=== PATIENT | female | born 1970 | race Caucasian/White ===

== ENCOUNTER → 2017-05-22 | Outpatient (CLI) | payer BC ==
--- NOTE | 2017-05-24 10:00 | Diagnostic Imaging Report ---
EXAMINATION: MRI of the brain without contrast. HISTORY: Multiple sclerosis follow-up COMPARISON: Brain MRI and 11/21/2016 TECHNIQUE: Axial precontrast T1. Postcontrast sagittal high resolution thin cuts T2-FLAIR CUBE with axial and coronal reconstructions, axial DWI, T2, and axial and coronal T1 fat sat. FINDINGS: T2 lesions: Unchanged approximately 35-40 discrete T2 lesions located in the juxta cortical, subcortical, deep centrum semiovale, stone radiata, periventricular, corpus callosum, callososeptal interface, around the margins of the fourth ventricle as well as confluent left periatrial and occipital periventricular lesions. Lesions are 2 to 27 mm diameter. No discrete new T2 lesions. T1 lesions: Unchanged right superior/middle frontal gyri T1 lesion. Corpus callosum volume: Mild generalized volume loss Brain volume: Normal for age. Other: No mass, hydrocephalus, hemorrhage, acute or chronic infarcts IMPRESSION: 1. Unchanged mostly supratentorial white matter demyelinating T2 lesions. No new MS lesions. 2. Stable mild callosal volume loss. Signed by: Dr. Kavita Marcus M.D. on 05/24/2017 9:56 AM
== END ==
LOC: MRI 08:52
PROVIDERS: ATTEND Radiology Neuroradiology
DX: G35 Multiple sclerosis (principal)
CPT/HCPCS: 70551

== ENCOUNTER → 2017-12-04 | Outpatient (CLI) | payer BC ==
--- NOTE | 2017-12-06 07:05 | Diagnostic Imaging Report ---
EXAMINATION: MRI of the brain without contrast. HISTORY: Multiple sclerosis follow-up COMPARISON: Brain MRI on 05/22/2017 TECHNIQUE: Axial precontrast T1. Postcontrast sagittal high resolution thin cuts T2-FLAIR CUBE with axial and coronal reconstructions, axial DWI, T2, and axial and coronal T1 fat sat. FINDINGS: T2 lesions: Unchanged approximately 35-40 discrete T2 lesions located in the juxta cortical, subcortical, deep centrum semiovale, stone radiata, periventricular, corpus callosum, callososeptal interface, around the margins of the fourth ventricle as well as confluent bilateral periatrial and occipital periventricular lesions. Lesions are 2 to 27 mm diameter. No discrete new T2 lesions. T1 lesions: Unchanged right superior/middle frontal gyri T1 lesion with associated focal volume loss. Corpus callosum volume: Mild generalized volume loss Brain volume: Mild volume loss Other: No mass, hydrocephalus, hemorrhage, acute or chronic infarcts IMPRESSION: 1. Unchanged mostly supratentorial white matter demyelinating T2 lesions. No new MS lesions. 2. Stable mild callosal and brain volume loss. Signed by: Dr. Kavita Marcus M.D. on 12/06/2017 7:02 AM
== END ==
LOC: MRI 07:57
PROVIDERS: ATTEND Radiology Neuroradiology
DX: G35 Multiple sclerosis (principal)
CPT/HCPCS: 70551

== ENCOUNTER → 2018-06-08 | Outpatient (CLI) | payer BC ==
--- NOTE | 2018-06-08 09:17 | Diagnostic Imaging Report ---
EXAMINATION: MRI of the brain without contrast . HISTORY: Relapsing remitting multiple sclerosis follow-up, high risk medication (Tysabri). COMPARISON: Brain MRI and 12/04/2017 TECHNIQUE: Precontrast axial DWI, T1, T2, T2 FLAIR, Volumetric T2 FLAIR FS reconstructed in the axial, sagittal and coronal planes. FINDINGS: T2 lesions: Unchanged approximately 35-40 discrete T2 lesions located in the juxta cortical, subcortical, deep centrum semiovale, stone radiata, periventricular, corpus callosum, callososeptal interface, around the margins of the fourth ventricle as well as confluent bilateral periatrial and occipital periventricular lesions. Unchanged lesions near the genu of the internal capsules and left thalamo-capsular region. Lesions are 2 to 27 mm diameter. No discrete new T2 lesions. T1 lesions: Unchanged prominent right middle frontal gyrus juxtacortical T1 lesion. Overall unchanged approximately 3 to 5 slightly T1 hypointense periventricular lesions. Corpus callosum volume: Multiple renal Brain volume: Mild volume loss, with particular focal atrophy along the right middle frontal gyrus, related to above mentioned T1 lesion. Other: No mass, hydrocephalus, hemorrhage, acute or chronic infarcts IMPRESSION: 1. Unchanged mostly supratentorial white matter demyelinating. 2 lesions. No new T1 or T2 MS lesions. 2. Persistent mild brain and callosal volume loss. Signed by: Dr. Kavita Marcus M.D. on 06/08/2018 9:13 AM
== END ==
LOC: MRI 07:57
PROVIDERS: ATTEND Radiology Neuroradiology
DX: G35 Multiple sclerosis (principal)
CPT/HCPCS: 70551

== ENCOUNTER → 2018-12-05 | Outpatient (CLI) | payer BC ==
--- NOTE | 2018-12-05 10:16 | Diagnostic Imaging Report ---
Examination: MRI BRAIN WITHOUT CONTRAST HISTORY:Multiple sclerosis. COMPARISON:Brain MRI performed June 08, 2018, December 04, 2017 and May 22, 20192017. TECHNIQUE: Sagittal and coronal FLAIR; axial T1, T2, and DWI. Contrast: None. FINDINGS: T2 lesions: Number: Unchanged between 35 and 40 discrete T2 lesions. No new lesion. Location: Genu of the left internal capsule, left thalamocapsular region, periventricular, deep, callosal septal interface, corpus callosum, juxtacortical white matter. Left superior cerebellum. T1 "black holes": Unchanged right superior and middle frontal gyri and juxtacortical lesion of cerebrospinal fluid equivalent intensity. Unchanged remaining few mildly hypointense lesions in the periventricular white matter. Enhancing lesions: Not able to be assessed due to lack of intravenous contrast. Corpus callosum volume: Mild diffuse volume loss, unchanged. Brain volume: Mild volume loss with severe atrophy of the right superior and middle frontal gyri. Additional finding: No additional intracranial abnormality. IMPRESSION: Unchanged lesions due to multiple sclerosis when compared to most recent brain MRI performed June 08, 2018. No new lesions. Signed by: Dr. Marti Bartlett M.D. on 12/05/2018 10:13 AM
== END ==
LOC: MRI 07:36
PROVIDERS: ATTEND Radiology Neuroradiology
DX: G35 Multiple sclerosis (principal)
CPT/HCPCS: 70551

== ENCOUNTER → 2019-04-13 | Outpatient (CLI) | payer BC ==
--- NOTE | 2019-04-13 14:41 | Diagnostic Imaging Report ---
Examination: MRI BRAIN WO CONTRAST HISTORY:Multiple sclerosis. COMPARISON:Brain MRI performed November,, June 08, 2018, December 04, 2017 and May 22, 2017. TECHNIQUE: Sagittal and coronal FLAIR; axial T1, T2, and DWI. Contrast: None. FINDINGS: T2 lesions: Number: Unchanged between 35 and 40 discrete T2 lesions. No new lesion. Location: Genu of the left internal capsule, left thalamocapsular region, periventricular, deep, callosal septal interface, corpus callosum, juxtacortical white matter. Left superior cerebellum. T1 "black holes": Unchanged right superior and middle frontal gyri and juxtacortical lesion of cerebrospinal fluid equivalent intensity. Unchanged remaining few mildly hypointense lesions in the periventricular white matter. Enhancing lesions: Not able to be assessed due to lack of intravenous contrast. Corpus callosum volume: Mild diffuse volume loss, unchanged. Brain volume: Mild volume loss with severe atrophy of the right superior and middle frontal gyri. Additional finding: Partial opacification of the right greater than left maxillary sinuses, new from prior exam. IMPRESSION: No new lesions. Unchanged lesions due to multiple sclerosis when compared to most recent brain MRI performed November,. Signed by: Dr. Marti Bartlett M.D. on 04/13/2019 2:38 PM
== END ==
LOC: MRI 07:30
PROVIDERS: ATTEND Radiology Neuroradiology
DX: G35 Multiple sclerosis (principal)
CPT/HCPCS: 70551

== ENCOUNTER → 2019-10-25 | Outpatient (CLI) | payer BC ==
--- NOTE | 2019-10-25 15:40 | Diagnostic Imaging Report ---
Exam: Brain MRI without with IV contrast History: 49-year-old female multiple sclerosis Comparison studies: Multiple prior brain MRIs which date to 11/26/2017, most recent 04/13/2019. Technique: Sagittal axial T2 FLAIR, axial T2, axial and coronal T1 and axial DWI. Findings: Please note, evaluation for active inflammation/demyelination is limited by the absence of IV contrast. T2 lesion load: Number: Approximately 35-40. New lesions. Size: From 2 mm to 25 mm. Mildly confluent lesions present in the left periatrial and bilateral occipital periventricular white matter. Juxtacortical, subcortical, deep supratentorial and periventricular, callosal septal interface, corpus callosum and left cerebellum. T1 hypointense foci: Unchanged right superior middle frontal juxtacortical lesion similar to CSF signal. A few mildly T1 hypointense lesions in the deep supratentorial periventricular white matter are also unchanged. Enhancing lesions: Canal evaluate in the absence of IV contrast. Corpus callosum volume: Mild volume loss. Brain volume: Mild generalized volume loss with superimposed severe focal atrophy along the right superior middle frontal gyri. Other: No mass, hemorrhage, extra axial fluid collection, hydrocephalus or acute ischemia. IMPRESSION: 1. No new lesions. 2. Demyelinating lesions and brain volume loss as described are unchanged from the prior brain MRI of 04/13/2019. Signed by: Dr. Bobby Rawls M.D. on 10/25/2019 3:37 PM
== END ==
LOC: MRI 14:24
PROVIDERS: ATTEND Radiology Neuroradiology
DX: G35 Multiple sclerosis (principal)
CPT/HCPCS: 70551

== ENCOUNTER → 2020-04-24 | Outpatient (CLI) | payer BC | LOC: MRI 08:11 | PROVIDERS: ATTEND Radiology Neuroradiology | DX: G35 Multiple sclerosis (principal) | CPT/HCPCS: 70551 ==

== ENCOUNTER → 2020-10-23 | Outpatient (CLI) | payer BC | LOC: MRI 15:25 | PROVIDERS: ATTEND Radiology Neuroradiology | DX: G35 Multiple sclerosis (principal) | CPT/HCPCS: 70551 ==

== ENCOUNTER → 2021-04-09 | Outpatient (CLI) | payer BC | LOC: MRI 08:01 | PROVIDERS: ATTEND Radiology Neuroradiology | DX: G35 Multiple sclerosis (principal) | CPT/HCPCS: 70551 ==

== ENCOUNTER → 2021-10-22 | Outpatient (CLI) | payer BC | LOC: MRI 12:37 | PROVIDERS: ATTEND Radiology Neuroradiology | DX: G35 Multiple sclerosis (principal) | CPT/HCPCS: 70551 ==

== ENCOUNTER → 2022-04-15 | Outpatient (CLI) | payer BC | LOC: MRI 10:54 | PROVIDERS: ATTEND Radiology Neuroradiology | DX: G35 Multiple sclerosis (principal) | CPT/HCPCS: 70551 ==

== ENCOUNTER → 2022-10-23 | Outpatient (CLI) | payer BC | LOC: MRI 07:58 | PROVIDERS: ATTEND Radiology Neuroradiology | DX: G35 Multiple sclerosis (principal) | CPT/HCPCS: 70551 ==

== ENCOUNTER → 2024-05-05 | Outpatient (REF) | payer BC | LOC: MRI 12:40 | PROVIDERS: ATTEND Radiology Neuroradiology | DX: G35 Multiple sclerosis (principal) | CPT/HCPCS: 70551 ==